=== PATIENT | male | born 1975 | race American Indian/Alaskan Native ===

== ENCOUNTER 2019-09-03 05:39 | Day surgery (SDC) | payer OTHER ==
[2019-09-03] MEDS ORDERED: MIDAZOLAM 2 MG/2 ML INJ IV NR (06:00)
[2019-09-03] MEDS ORDERED: LACTATED RINGERS 1,000 ML IV SCH (06:00)
[2019-09-03] MEDS ORDERED: NEOMY 3.5 MG/BACIT 400 UNITS/POLY B 5000 UNITS/GM OINT PACKET TP ONE (07:24)
[2019-09-03] MEDS ORDERED: BUPIVACAINE/PF (0.25%) 2.5 MG/ML 30 ML VIAL INFILTRATI ONE (07:24)
[2019-09-03] MEDS ORDERED: ceFAZolin/STERILE WATER 2 GM/20 ML SYRINGE IV NR (07:25)
[2019-09-03] MEDS ORDERED: propofoL 200 MG/20 ML VIAL IV ONE (07:35)
[2019-09-03] MEDS ORDERED: fentaNYL 100 MCG/2 ML INJ ONE (07:35)
[2019-09-03] MEDS ORDERED: LIDOCAINE MPF (2%) 20 MG/1 ML VIAL 5 ML ONE (07:50)
[2019-09-03] MEDS ORDERED: KETOROLAC 30 MG/1 ML INJ ONE (07:50)
[2019-09-03] MEDS ORDERED: ONDANSETRON 4 MG/2 ML INJ ONE (07:50)
[2019-09-03] MEDS ORDERED: HYDROCORTISONE SOD SUCC 100 MG/2 ML VIAL ONE (07:50)
[2019-09-03] MEDS ORDERED: SODIUM CHLORIDE 0.9% IRR 1,500 ML BOTTLE IR ONE (08:10)
[2019-09-03] MEDS ORDERED: HYDROmorphone 1 MG/1 ML INJ IV PRN (08:51)
[2019-09-03] MEDS ORDERED: ONDANSETRON 4 MG/2 ML INJ IV PRN (08:51)
--- NOTE | 2019-09-03 09:00 | Operative Report ---
PREOPERATIVE DIAGNOSIS: Severe balanitis recurrent. POSTOPERATIVE DIAGNOSIS: Severe balanitis recurrent. PROCEDURE: Circumcision, sleeve technique. SURGEON: Dr. Harris. ANESTHESIA: General. FINDINGS: This is a gentleman with severe inflammatory changes in inner foreskin. He elected to undergo circumcision. All risks and implications discussed. DESCRIPTION OF PROCEDURE: The patient was brought to the operating room and placed on the operating table. Following induction of anesthesia, he was placed in the supine position, prepped and draped in usual sterile fashion. Two circumcision incisions were marked out with a marking pencil. The penile incision was made and then it was undermined and the inner foreskin incision was made at the wall. These were connected dorsally. Large amount of skin was excised with different types of skin changes and discoloration. The patient tolerated the procedure well. No significant complications. Small vessels were tied with 3-0 chromic and all cauterized. Hemostasis was excellent. Sutures were placed at 12, 3, 6, and 9 o'clock position. Each quadrant was bisected with 3-0 chromic. The patient tolerated the procedure well and brought to recovery in stable condition. JOB# [id number] ERIC/CLARK
--- NOTE | 2019-09-03 09:51 | Post Operative Note ---
Date of procedure: 08/27/19 Pre-op diagnosis: balanitis Post-op diagnosis: same Findings: inflamation Procedure: circ Anesthesia: GETA Surgeon: OSCAR RODRIGUEZ Estimated blood loss: minimal Pathology: list (forskin) Specimen disposition: to lab Condition: stable Disposition: PACU
--- NOTE | 2019-09-03 09:53 | Discharge Summary ---
Short Stay Discharge Plan Activity: other (no sex no straining ) Weight Bearing Status: Full Weight Bearing Diet: low fat, low cholesterol, low salt Wound: open to air (remove dressing tonight ) Durable Medical Equipment Needed Upon Discharge: other (ice packs today ) Follow up with: MARITZA BRITTON [Other] - 7 Days OSCAR RODRIGUEZ MD [Staff Physician] - 10 Days Forms: [facility]
--- NOTE | 2019-09-03 10:03 | Anesthesia Consultation ---
Anesthesia Consult and Med Hx Date of service: 09/03/19 - Airway Anesthetic Teeth Evaluation: Good ROM Head & Neck: Adequate Mental/Hyoid Distance: Adequate Mallampati Class: Class II Intubation Access Assessment: Good - Pulmonary Exam CTA: Yes - Cardiac Exam Cardiac Exam: RRR - Pre-Operative Health Status ASA Pre-Surgery Classification: ASA2 Proposed Anesthetic Plan: General (pt has h/o sarcoidosis, no steriods for the last 2 yrs) - Pulmonary Hx Smoking: No Hx Sleep Apnea: No (SHERRILL PRE SCREEN LOW RISK) - Cardiovascular System Hx Hypertension: No - Central Nervous System Hx Psychiatric Problems: No - Other Systems Hx Cancer: No
--- NOTE | 2019-09-03 10:04 | Post Anesthesia Evaluation ---
- Post Anesthesia Evaluation Patient Participated: Yes Airway Patent: Yes Stable Respiratory Function: Yes Nausea/Vomiting: No Temp > 96.8F: Yes Pain Manageable: Yes Adequeate Hydration: Yes Anesthesia Complications: No Block Receding Appropriately: Not Applicable Patient on Ventilator: No
--- NOTE | 2019-09-03 10:04 | Anesthesia Day of Surgery ---
Anesthesia Day of Surgery - Day of Surgery Patient Examined: Yes Patient H&P Reviewed: Yes Patient is NPO: Yes
[2019-09-03 10:08] VITALS: BP 119/80
== END 2019-09-03 05:40 | disposition home or self-care (01) ==
LOC: OR 05:39
PROVIDERS: ATTEND Urology
DX: N48.0 Leukoplakia of penis (principal); Z98.890 Other specified postprocedural states
CPT/HCPCS: 54161; 88304; J1720; J1885; J2250; J2405; J2704; J3010; J7120; A6250